=== PATIENT | female | born 1985 | race African-American/Black ===

== ENCOUNTER 2016-07-17 20:03 | Emergency (ER) | payer OTHER ==
[~2016-07-17] VITALS: Ht 157.5 cm; Wt 67.2 kg
[2016-07-17 20:32] LABS: ADD MIUA? YES; BILIRUBIN NEGATIVE; BLOOD NEGATIVE; COLOR YELLOW ((YELLOW)); GLUCOSE (STRIP) NEGATIVE; KETONES NEGATIVE; LEUKOCYTES SMALL; NITRITE NEGATIVE; PH, URINE 6.5 (5-8); PROTEIN (STRIP) NEGATIVE; SPECIFIC GRAVITY 1.021 (1.000-1.030); UROBILINOGEN 0.2 MG/DL (0.2-1.0)
[2016-07-17] MEDS ORDERED: PROGESTERONE200 MG PO (21:03)
[2016-07-17] MEDS ORDERED: ENDOMETRIN100 MG VG (21:04)
[2016-07-17] MEDS ORDERED: PRENATAL TABLE1 EAC3 PO (21:04)
[2016-07-17 21:18] LABS: HEMATOCRIT 35.7 % (36.0-46.0); MCH 26.3 PG (29.0-34.0); MCHC 32.5 G/DL (30.0-36.0); MEAN PLAT.VOLUME 9.4 uM^3 (9.5-12.4); PLATELET COUNT 248 K/uL (156-360); RBC DIS.WIDTH-CV 18.9 % (11.8-14.6); RBC DIS.WIDTH-SD 55.1 % (39-53); RED BLOOD COUNT 4.41 M/uL (3.80-5.20); WHITE BLOOD COUNT 6.3 K/uL (4.1-10.2)
[2016-07-17 21:29] LABS: CHLORIDE 105 mEq/L (99-109); POTASSIUM 3.8 mEq/L (3.7-5.4); SODIUM 136 mEq/L (136-147)
[2016-07-17 21:31] LABS: GLUCOSE 83 mg/dL (70-99)
[2016-07-17 21:32] LABS: ANION GAP 11 MEQ/L (2-14)
[2016-07-17 22:05] LABS: QUANTITATIVE HCG 43647.7 MIU/ML
[2016-07-17 22:06] LABS: GFR ESTIMATE (CALCULATED) > 59 mL/min/; UREA NITROGEN (BUN) 8 mg/dL (9-23)
[2016-07-17 22:09] LABS: BACTERIA RARE /HPF; EPITHELIAL CELLS 1+ /HPF; MUCUS 1+ /LPF; UCUL ADDED? NO; WHITE BLOOD CELLS 0-5 /HPF (0-5)
[2016-07-18 00:22] VITALS: BP 127/75
== END 2016-07-18 00:28 | disposition home or self-care (01) ==
LOC: EME 20:03
DX: O20.0 Threatened abortion (principal); O44.42 Low lying placenta NOS or without hemorrhage, second trimester; O34.12 Maternal care for benign tumor of corpus uteri, second trimester; R11.0 Nausea; Z3A.16 16 weeks gestation of pregnancy
CPT/HCPCS: 76805; 80048; 80048 91; 81003; 84702; 85027; 86900; 86901; 99281; 99284

== ENCOUNTER 2016-12-23 17:40 | Inpatient (IN) | payer OTHER ==
[~2016-12-23] VITALS: Ht 157.5 cm; Wt 72.7 kg
[~2016-12-23 17:40] MED LIST: ENDOMETRIN100 MG VG; PRENATAL TABLE1 EAC3 PO; PROGESTERONE200 MG PO
[2016-12-23 18:01] VITALS: BP 123/78
[2016-12-23 19:35] VITALS: BP 119/77
[2016-12-23 21:20] VITALS: BP 120/73
[2016-12-23 21:29] LABS: HEMATOCRIT 36.3 % (36.0-46.0); MCH 26.6 PG (29.0-34.0); MCHC 31.7 G/DL (30.0-36.0); PLATELET COUNT 247 K/uL (156-360); RBC DIS.WIDTH-CV 15.9 % (11.8-14.6); RBC DIS.WIDTH-SD 48.2 % (39-53); RED BLOOD COUNT 4.32 M/uL (3.80-5.20); WHITE BLOOD COUNT 6.9 K/uL (4.1-10.2)
[2016-12-23 22:15] LABS: EOSINOPHIL (%) 0.1 % (0-5); IMMATURE GRANULOCYTE (%) 0.6 % (0.0-0.7); INSTRUMENT ABS NEUTROPHIL CT 5.2 K/uL; LYMPHOCYTE COUNT 1.1 K/uL (1.0-2.8); MONOCYTE COUNT 0.5 K/uL (0-0.8); NEUTROPHIL (%) 75.8 % (45-76); NEUTROPHIL COUNT 5.2 K/uL (1.8-6.4)
[2016-12-24] VITALS (10 sets, daily range): BP systolic 106–132; BP diastolic 57–77
[2016-12-24 03:49] LABS: AMPHETAMINES QUANT VALUE 0 NG/ML; BARBITUATES QUANT VALUE 0 NG/ML; BENZODIAZEPINES QUANT VALUE 0 NG/ML; BENZODIAZEPINES, URINE SCREEN Negative (200 ng/mL); MARIJUANA QUANT VALUE 0 NG/ML; OPIATES QUANTITATIVE VALUE 0 NG/ML; PHENCYCLIDINE QUANT VALUE 0 NG/ML
[2016-12-25 06:12] LABS: EOSINOPHIL (%) 0.6 % (0-5); EOSINOPHIL COUNT 0.1 K/uL (0-0.3); HEMATOCRIT 32.2 % (36.0-46.0); IMMATURE GRANULOCYTE (%) 0.4 % (0.0-0.7); INSTRUMENT ABS NEUTROPHIL CT 5.8 K/uL; LYMPHOCYTE COUNT 1.7 K/uL (1.0-2.8); MCH 27.1 PG (29.0-34.0); MCHC 31.7 G/DL (30.0-36.0); MCV 85.6 FL (83-99); MEAN PLAT.VOLUME 9.7 uM^3 (9.5-12.4); MONOCYTE (%) 8.6 % (3-12); MONOCYTE COUNT 0.7 K/uL (0-0.8); NEUTROPHIL (%) 70.3 % (45-76); NEUTROPHIL COUNT 5.8 K/uL (1.8-6.4); PLATELET COUNT 235 K/uL (156-360); RBC DIS.WIDTH-CV 16.7 % (11.8-14.6); RED BLOOD COUNT 3.76 M/uL (3.80-5.20); WHITE BLOOD COUNT 8.3 K/uL (4.1-10.2)
[2016-12-25 07:26] VITALS: BP 110/69
[2016-12-25 15:31] VITALS: BP 118/77
[2016-12-25 22:53] VITALS: BP 121/76
[2016-12-26 07:37] VITALS: BP 109/71
[2016-12-26] MEDS ORDERED: Tylenol Extra Streng PO (08:56)
[2016-12-26] MEDS ORDERED: IBUPROFEN800 MG PO (08:56)
[2016-12-26 15:01] VITALS: BP 116/73
== END 2016-12-26 16:50 | disposition home or self-care (01) | DRG 775 ==
LOC: LDRP-OP → 2WEST 17:43 → LDRP-OP 01-30 15:46
PROVIDERS: Advanced Practice Midwife
DX: O99.52 Diseases of the respiratory system complicating childbirth (principal); J45.909 Unspecified asthma, uncomplicated; Z68.25 Body mass index [BMI] 25.0-25.9, adult; E66.3 Overweight; Z37.0 Single live birth; Z3A.39 39 weeks gestation of pregnancy
CPT/HCPCS: 80306 90; 85025; 85025 91; 85027; G0378; J7120